=== PATIENT | male | born 1965 | race Hispanic/Latino ===

== ENCOUNTER 2021-08-23 05:40 | Inpatient (IN) | payer SELFPAY ==
[2021-08-23] MEDS ORDERED: Nitroglycerin 2% Ointment 1 INCH/1 GM Packet ONE (06:09)
[2021-08-23] MEDS ORDERED: Aspirin 325 MG TAB ONE (06:09)
[2021-08-23 06:16] LABS: #Eosinphils 0.1 thou/uL (0.0-0.7); #Lymphocytes 1.4 thou/uL (1.20-3.40); #Monocytes 0.4 thou/uL (0.11-0.59); #Neutrophils 7.3 thou/uL (1.40-6.50); %Basophils 0.4 % (0.0-1.0); %Eosinophils 0.7 % (0.0-10.0); %Lymphocytes 14.9 % (21.0-51.0); %Monocytes 4.1 % (0.0-10.0); %Neutrophils 79.9 % (42.0-75.0); Hemoglobin 19.4 g/dL (14.0-18.0); Mean Corpuscular HGB CONC 34.2 g/dL (32.0-36.0); Mean Corpuscular Hemoglobin 31.5 pg (27.0-31.0); Mean Corpuscular Volume 92.3 fL (78.0-98.0); Mean Platelet Volume 7.8 fL (7.4-10.4); Platelet Count 170 thou/uL (130-400); RBC Distribution Width 12.6 % (11.5-14.5); Red Blood Cell (RBC) Count 6.15 mill/uL (4.70-6.10); White Blood Cell (WBC) Count 9.1 thou/uL (4.8-10.8)
[2021-08-23] MEDS ORDERED: Enoxaparin Sodium 100 MG/ML SYRINGE ONE (07:13)
[2021-08-23 07:23] LABS: Albumin 4.2 g/dL (3.5-5.0)
[2021-08-23 07:25] LABS: Chloride 101 mmol/L (98-107); Sodium 137 mmol/L (136-145)
[2021-08-23 07:26] LABS: Calcium 8.6 mg/dL (7.8-10.44); Globulin 3.3 g/dL (2.4-3.5); Glucose 221 mg/dL (70-105); Protein, Total 7.5 g/dL (6.0-8.3)
[2021-08-23 07:28] LABS: Anion Gap 14 mmol/L (10-20); Bilirubin, Total 0.6 mg/dL (0.2-1.2); Carbon Dioxide 26 mmol/L (22-29)
[2021-08-23 07:29] LABS: Alkaline Phosphatase 102 U/L (40-110)
[2021-08-23 07:30] LABS: BUN (Urea Nitrogen) 9 mg/dL (8.4-25.7); Calc. Creatinine Clearance 0 mL/min (70-130)
[2021-08-23 07:31] LABS: AST (SGOT) 54 U/L (5-34)
[2021-08-23 07:32] LABS: ALT (SGPT) 47 U/L (8-55)
[2021-08-23] MEDS ORDERED: Nitroglycerin 0.4 MG TAB (25 Tab Bottle) SL PRN (07:39)
[2021-08-23 08:06] LABS: Hemoglobin A1c 7.7 % (4.0-6.0)
[2021-08-23] MEDS ORDERED: Enoxaparin Sodium 80 MG/0.8 ML SYRINGE SC SCH (09:00)
[2021-08-23 09:50] VITALS: BMI 31.6
[2021-08-23 10:06] LABS: Troponin I 6.235 ng/mL (< 0.028)
[2021-08-23] MEDS: Metoprolol Tartrate 25 MG TAB PO SCH ×2 (11:13→21:55)
[2021-08-23] MEDS: Folic Acid 1 MG TAB PO SCH (11:13)
[2021-08-23] MEDS: Thiamine 100 MG TAB PO SCH (11:13)
[2021-08-23] MEDS: Multivit, Therapeutic 1 TAB PO SCH (11:13)
[2021-08-23] MEDS ORDERED: Communication Order-Pharmacy FS SCH (11:45)
[2021-08-23] MEDS: Lactated Ringer's 1,000 ML IV SCH (12:41)
[2021-08-23 13:31] LABS: Troponin I 17.824 ng/mL (< 0.028)
[2021-08-23] MEDS: Nitroglycerin 2% Ointment 1 INCH/1 GM Packet TOP SCH ×2 (15:33→21:54)
[2021-08-23 20:39] LABS: SARS-CoV-2 PCR by NAA Not Detected (NotDetected)
[2021-08-23] MEDS ORDERED: Enoxaparin Sodium 100 MG/ML SYRINGE SC SCH (21:00)
[2021-08-23] MEDS ORDERED: Atorvastatin Calcium 20 MG TAB PO SCH (21:00)
[2021-08-23] MEDS: Atorvastatin Calcium 20 MG TAB PO SCH (21:55)
[2021-08-24] MEDS: Lactated Ringer's 1,000 ML IV SCH (02:09)
[2021-08-24] MEDS: Folic Acid 1 MG TAB PO SCH (04:39)
[2021-08-24] MEDS: Metoprolol Tartrate 25 MG TAB PO SCH ×2 (04:39→21:50)
[2021-08-24] MEDS: Multivit, Therapeutic 1 TAB PO SCH (04:40)
[2021-08-24] MEDS: Thiamine 100 MG TAB PO SCH (04:40)
[2021-08-24] MEDS ORDERED: Lidocaine 1% (PF) 30 ML VIAL ONE (07:14)
[2021-08-24] MEDS ORDERED: Fentanyl 100 MCG/2 ML VIAL ONE (07:45)
[2021-08-24] MEDS ORDERED: Midazolam HCl 2 mg/2 ml Vial ONE (07:45)
[2021-08-24] MEDS ORDERED: Acetaminophen/Codeine 30-300mg Tablet PO PRN ×2 (08:32)
[2021-08-24] MEDS ORDERED: Nitroglycerin 0.4 MG TAB (25 Tab Bottle) SL PRN (08:32)
[2021-08-24] MEDS ORDERED: Sodium Chloride 0.9% 200 ML IV PRN (08:32)
[2021-08-24] MEDS ORDERED: Aspirin Chewable 81 MG TAB PO SCH (09:00)
[2021-08-24 09:58] LABS: #Basophils 0.1 thou/uL (0.0-0.2); #Eosinphils 0.1 thou/uL (0.0-0.7); #Lymphocytes 1.1 thou/uL (1.20-3.40); #Monocytes 0.6 thou/uL (0.11-0.59); #Neutrophils 5.7 thou/uL (1.40-6.50); %Basophils 0.8 % (0.0-1.0); %Eosinophils 1.5 % (0.0-10.0); %Lymphocytes 14.2 % (21.0-51.0); %Monocytes 7.6 % (0.0-10.0); Hemoglobin 17.2 g/dL (14.0-18.0); Mean Corpuscular HGB CONC 34.5 g/dL (32.0-36.0); Mean Corpuscular Hemoglobin 31.8 pg (27.0-31.0); Mean Corpuscular Volume 92.2 fL (78.0-98.0); Mean Platelet Volume 8.6 fL (7.4-10.4); Platelet Count 167 thou/uL (130-400); RBC Distribution Width 12.7 % (11.5-14.5); Red Blood Cell (RBC) Count 5.43 mill/uL (4.70-6.10); White Blood Cell (WBC) Count 7.4 thou/uL (4.8-10.8)
[2021-08-24 10:15] LABS: Anion Gap 12 mmol/L (10-20); BUN (Urea Nitrogen) 8 mg/dL (8.4-25.7); Calc. Creatinine Clearance 117 mL/min (70-130); Calcium 8.6 mg/dL (7.8-10.44); Carbon Dioxide 27 mmol/L (22-29); Cardiac Risk 6.9 (Less than 4.5); Chloride 102 mmol/L (98-107); Cholesterol 243 mg/dl (< 200 Desired); Glucose 160 mg/dL (70-105); HDL Cholesterol 35 mg/dL (>60 Neg Risk); LDL Cholesterol, Calculated 168 mg/dL; Sodium 137 mmol/L (136-145); Triglycerides 202 mg/dL (Less than 150)
[2021-08-24] MEDS: Nitroglycerin 2% Ointment 1 INCH/1 GM Packet TOP SCH ×3 (10:35→21:50)
[2021-08-24] MEDS ORDERED: Iopamidol 370 76% 100 ML VIAL ONE (10:47)
[2021-08-24] MEDS ORDERED: Communication Order-Pharmacy FS SCH (18:21)
[2021-08-24 18:58] LABS: Hemoglobin A1c 7.5 % (4.0-6.0)
[2021-08-24] MEDS: Atorvastatin Calcium 20 MG TAB PO SCH (21:49)
[2021-08-25] MEDS: Metoprolol Tartrate 25 MG TAB PO SCH (05:50)
[2021-08-25] MEDS ORDERED: ALPRAZolam 0.25 MG TAB PO SCH (06:00)
[2021-08-25 09:22] LABS: Anion Gap 9 mmol/L (10-20); BUN (Urea Nitrogen) 9 mg/dL (8.4-25.7); Calc. Creatinine Clearance 114 mL/min (70-130); Calcium 8.8 mg/dL (7.8-10.44); Carbon Dioxide 30 mmol/L (22-29); Chloride 102 mmol/L (98-107); Glucose 135 mg/dL (70-105); Potassium 3.8 mmol/L (3.5-5.1); Sodium 137 mmol/L (136-145)
[2021-08-25] MEDS ORDERED: ceFAZolin 2 GM/Dextrose 50 ML 2 GM in Premix Bag 1 BAG IVPB SCH (11:00)
[2021-08-25] MEDS ORDERED: Lidocaine 1% MPF 2 ML VIAL ONE (11:48)
[2021-08-25] MEDS ORDERED: EPINEPHrine 1 MG/ML AMP ONE (12:03)
[2021-08-25] MEDS ORDERED: Albumin 5% 500 ML ONE (12:03)
[2021-08-25] MEDS ORDERED: Bupivacaine 0.25% 10 ML VIAL ONE (12:03)
[2021-08-25] MEDS ORDERED: Dexamethasone 4 mg/ml Vial ONE (12:03)
[2021-08-25] MEDS ORDERED: Fentanyl 100 MCG/2 ML VIAL ONE (12:22)
[2021-08-25] MEDS ORDERED: Dexmedetomidine 200 MCG/2 ML VIAL ONE (12:23)
[2021-08-25] MEDS ORDERED: Midazolam HCl 5 mg/5 ml Vial ONE (12:23)
[2021-08-25] MEDS ORDERED: Heparin 10,000 UNITS/1 ML VIAL 30,000 UNITS in Sodium Chloride 0.9% 1,000 ML FS SCH (12:30)
[2021-08-25] MEDS ORDERED: ceFAZolin 2 GM/DEX 5% 100 ML BAG ONE (12:36)
[2021-08-25] MEDS ORDERED: PROPOFOL 200 MG/20 ML VIAL ONE (12:44)
[2021-08-25] MEDS ORDERED: Sodium Bicarb 50 MEQ/50 ML Abboject 8.4% SYRINGE ONE (12:44)
[2021-08-25] MEDS ORDERED: Mannitol 12.5 GM/50 ML ONE (12:44)
[2021-08-25] MEDS ORDERED: Magnesium Sulfate 1 GM/2 ML VIAL ONE (12:44)
[2021-08-25] MEDS ORDERED: Cardioplegic Soln 1,000 ML BAG ONE (12:44)
[2021-08-25] MEDS ORDERED: Thrombin 5000 UNITS/5 ML VIAL ONE (12:44)
[2021-08-25] MEDS ORDERED: Potassium Chloride 60 MEQ/30 ML VIAL ONE (12:44)
[2021-08-25] MEDS ORDERED: Papaverine 60 MG/2 ML VIAL ONE (12:44)
[2021-08-25] MEDS ORDERED: Protamine Sulfate 250 MG/25 ML VIAL ONE (12:44)
[2021-08-25] MEDS ORDERED: Aminocaproic Acid 5 GM/20 ML VIAL ONE (12:44)
[2021-08-25] MEDS ORDERED: Dexamethasone 20 MG/5 ML VIAL ONE (12:44)
[2021-08-25] MEDS ORDERED: Calcium Chloride 1 GM/10 ML Abboject SYRINGE ONE (12:44)
[2021-08-25] MEDS ORDERED: Heparin 30,000 units/30 ml VIAL ONE (12:44)
[2021-08-25] MEDS ORDERED: Norepinephrine 4 MG/4 ML VIAL ONE (12:44)
[2021-08-25] MEDS ORDERED: Heparin 5,000 UNITS/ML VIAL ONE (12:44)
[2021-08-25] MEDS ORDERED: Lidocaine 1% PF 5 ML VIAL ONE (12:44)
[2021-08-25] MEDS ORDERED: Vecuronium 10 MG VIAL ONE (12:44)
[2021-08-25] MEDS ORDERED: Lidocaine 2% PF 100 mg/5 ml Syringe ONE (12:44)
[2021-08-25] MEDS ORDERED: Glycopyrrolate 0.2 MG/ML 5 ML SYRINGE ONE (12:44)
[2021-08-25] MEDS ORDERED: Insulin Regular 300 UNITS/3 ML VIAL ONE (14:24)
[2021-08-25 16:15] LABS: Actual Bicarbonate (HCO3a) 20.9 mEq/L (22-28); Base Excess (BEa) -2.7 mEq/L (-2.0 to +3.0); CO2 Tension 33.3 mmHg (35.0-45.0); Calcium, Ionized (arterial) 1.09 mmol/L (1.12-1.30); Carboxyhemoglobin (COHb) 0.9 gm% (0.0-3.0); Hemoglobin (Hb) 16.1 g/dL (14.0-18.0); Potassium - ABG Lab 3.93 mmol/L (3.70-5.30); Puncture Site ALINE; pH, Arterial 7.42 (7.35-7.45)
[2021-08-25 16:21] LABS: ALV-art Gradient 188.575 mmHg (0-20)
[2021-08-25] MEDS ORDERED: Nitroglycerin 50 MG/250 ML BOT 250 ML IVPB PRN (16:38)
[2021-08-25] MEDS ORDERED: traMADol HCl 50 MG TAB PO PRN (16:38)
[2021-08-25] MEDS ORDERED: Phenylephrine 40 MG, Admixture Fee 1 EACH in Sodium Chloride 0.9% 250 ML 250 ML IVPB SCH (16:38)
[2021-08-25] MEDS ORDERED: Acetaminophen 325 MG TAB PO PRN (16:38)
[2021-08-25] MEDS ORDERED: Potassium Chloride 20 MEQ/100 ML PREMIX BAG IVPB PRN (16:38)
[2021-08-25] MEDS ORDERED: Bisacodyl 5 MG TAB PO PRN (16:38)
[2021-08-25] MEDS ORDERED: Post-Op Insulin Drip Protocol IVPB ONE (16:38)
[2021-08-25] MEDS ORDERED: D5 1/2 NS w/20 mEq KCL 1,000 ML IV SCH (16:38)
[2021-08-25] MEDS ORDERED: hydrALAZINE 20 MG/ML VIAL SLOW IVP PRN (16:38)
[2021-08-25] MEDS ORDERED: Ondansetron PF 4 MG/2 ML Vial IVP PRN (16:38)
[2021-08-25] MEDS ORDERED: Morphine 2 MG/ML VIAL SLOW IVP PRN (16:38)
[2021-08-25] MEDS ORDERED: Guaifenesin DM 100-10/5 ML UDCUP PO PRN (16:38)
[2021-08-25] MEDS ORDERED: Hetastarch 6% 500 ML 500 ML IVPB PRN (16:38)
[2021-08-25] MEDS ORDERED: Mag-Al 1200 mg/1200 mg/30 ML UDCUP PO PRN (16:38)
[2021-08-25] MEDS ORDERED: niCARdipine 25 MG in Sodium Chloride 0.9% 250 ML 250 ML IVPB PRN (16:38)
[2021-08-25] MEDS ORDERED: Fentanyl 100 MCG/2 ML VIAL SLOW IVP PRN (16:38)
[2021-08-25] MEDS ORDERED: Bisacodyl 10 MG SUPP PR PRN (16:38)
[2021-08-25] MEDS ORDERED: Dextrose 5% in Water 1,000 ML IV PRN (17:00)
[2021-08-25] MEDS ORDERED: Dextrose 50% Abboject 50 ML SYRINGE SLOW IVP PRN (17:00)
[2021-08-25] MEDS ORDERED: HUMULIN R 100 UNITS in Sodium Chloride 0.9% 100 ML IVPB SCH (17:00)
[2021-08-25] MEDS ORDERED: Insulin Regular 300 UNITS/3 ML VIAL SC PRN (17:00)
[2021-08-25] MEDS ORDERED: Lantus 1000 UNITS/10 ML VIAL SC PRN (17:00)
[2021-08-25 17:08] LABS: Anion Gap 14 mmol/L (10-20); BUN (Urea Nitrogen) 10 mg/dL (8.4-25.7); Calc. Creatinine Clearance 122 mL/min (70-130); Calcium 7.7 mg/dL (7.8-10.44); Carbon Dioxide 20 mmol/L (22-29); Chloride 109 mmol/L (98-107); Glucose 207 mg/dL (70-105); Potassium 4.3 mmol/L (3.5-5.1); Sodium 139 mmol/L (136-145)
[2021-08-25 17:12] LABS: #Basophils 0.1 thou/uL (0.0-0.2); #Eosinphils 0.1 thou/uL (0.0-0.7); #Lymphocytes 0.8 thou/uL (1.20-3.40); #Monocytes 0.6 thou/uL (0.11-0.59); #Neutrophils 14.6 thou/uL (1.40-6.50); %Basophils 0.5 % (0.0-1.0); %Eosinophils 0.3 % (0.0-10.0); %Lymphocytes 4.9 % (21.0-51.0); %Monocytes 3.5 % (0.0-10.0); %Neutrophils 90.8 % (42.0-75.0); Hemoglobin 16.7 g/dL (14.0-18.0); Mean Corpuscular HGB CONC 33.7 g/dL (32.0-36.0); Mean Corpuscular Hemoglobin 31.4 pg (27.0-31.0); Mean Corpuscular Volume 93.3 fL (78.0-98.0); RBC Distribution Width 12.5 % (11.5-14.5); Red Blood Cell (RBC) Count 5.32 mill/uL (4.70-6.10); White Blood Cell (WBC) Count 16.1 thou/uL (4.8-10.8)
[2021-08-25 17:18] LABS: INR-International Normal Ratio 1.2; Prothrombin Time 15.6 sec (12.0-14.7)
[2021-08-25 17:19] LABS: PTT 34.3 sec (22.9-36.1)
[2021-08-25 17:20] LABS: MDiff Complete? YES; Mean Platelet Volume 8.2 fL (7.4-10.4); Platelet Count 114 thou/uL (130-400); Platelet Morphology Comment Appears Decreased; Polychromasia SLIGHT = 2-3 cells (100X) (0-2/hpf)
[2021-08-25] MEDS: Ketorolac Tromethamine 30 MG/ML VIAL IVP SCH ×2 (17:25→23:31)
[2021-08-25] MEDS ORDERED: Magnesium 2 GM/50 ML(in water) 2 GM in Premix Bag 1 BAG IVPB SCH (17:30)
[2021-08-25 18:51] LABS: Actual Bicarbonate (HCO3a) 22.3 mEq/L (22-28); Base Excess (BEa) -2.2 mEq/L (-2.0 to +3.0); CO2 Tension 37.8 mmHg (35.0-45.0); Carboxyhemoglobin (COHb) 0.6 gm% (0.0-3.0); Hemoglobin (Hb) 17.2 g/dL (14.0-18.0); O2 Tension (PaO2), arterial 62.1 mmHg (80.0-100.0); Potassium - ABG Lab 3.95 mmol/L (3.70-5.30); pH, Arterial 7.39 (7.35-7.45)
[2021-08-25] MEDS: Fentanyl 100 MCG/2 ML VIAL SLOW IVP PRN (19:46)
[2021-08-25] MEDS ORDERED: Famotidine/PF 20 mg/2ml Vial SLOW IVP SCH (21:00)
[2021-08-25] MEDS: Atorvastatin Calcium 40 MG TAB PO SCH (21:08)
[2021-08-25] MEDS: CEFAZOLIN 2 GM, Admixture Fee 1 EACH in Sodium Chloride 0.9% 100 ML IVPB SCH (21:38)
[2021-08-26] MEDS ORDERED: Lorazepam 1 MG TAB PO PRN
[2021-08-26] MEDS: traMADol HCl 50 MG TAB PO PRN (01:09)
[2021-08-26] MEDS: Fentanyl 100 MCG/2 ML VIAL SLOW IVP PRN (03:40)
[2021-08-26 03:55] LABS: #Lymphocytes 0.5 thou/uL (1.20-3.40); #Monocytes 0.8 thou/uL (0.11-0.59); #Neutrophils 12.7 thou/uL (1.40-6.50); %Eosinophils 0.1 % (0.0-10.0); %Lymphocytes 3.3 % (21.0-51.0); %Monocytes 5.6 % (0.0-10.0); %Neutrophils 90.9 % (42.0-75.0); Mean Corpuscular HGB CONC 33.7 g/dL (32.0-36.0); Mean Corpuscular Hemoglobin 31.3 pg (27.0-31.0); Mean Platelet Volume 7.7 fL (7.4-10.4); Platelet Count 126 thou/uL (130-400); RBC Distribution Width 12.5 % (11.5-14.5); Red Blood Cell (RBC) Count 4.16 mill/uL (4.70-6.10)
[2021-08-26 03:58] LABS: Anion Gap 10 mmol/L (10-20); BUN (Urea Nitrogen) 13 mg/dL (8.4-25.7); Calc. Creatinine Clearance 131 mL/min (70-130); Calcium 7.5 mg/dL (7.8-10.44); Carbon Dioxide 23 mmol/L (22-29); Chloride 110 mmol/L (98-107); Glucose 131 mg/dL (70-105); Potassium 3.9 mmol/L (3.5-5.1); Sodium 139 mmol/L (136-145)
[2021-08-26] MEDS: CEFAZOLIN 2 GM, Admixture Fee 1 EACH in Sodium Chloride 0.9% 100 ML IVPB SCH ×2 (04:32→12:37)
[2021-08-26] MEDS: Ketorolac Tromethamine 30 MG/ML VIAL IVP SCH ×4 (06:14→23:57)
[2021-08-26] MEDS: Aspirin 325 MG TAB PO SCH (08:03)
[2021-08-26] MEDS: Magnesium 2 GM/50 ML(in water) 2 GM in Premix Bag 1 BAG IVPB SCH (08:03)
[2021-08-26] MEDS: Folic Acid 1 MG TAB PO SCH (08:04)
[2021-08-26] MEDS ORDERED: Thiamine 100 MG TAB PO SCH (09:00)
[2021-08-26] MEDS ORDERED: Ondansetron ODT 4 MG TAB PO PRN (10:00)
[2021-08-26] MEDS ORDERED: Electrolyte Replacement Protocol 1 EACH FS PRN (10:00)
[2021-08-26] MEDS ORDERED: Lorazepam 2 MG/ML VIAL IM PRN (10:00)
[2021-08-26] MEDS: Thiamine HCl 200 MG/2 ML VIAL SLOW IVP SCH (10:52)
[2021-08-26] MEDS: Lorazepam 1 MG TAB PO SCH ×3 (10:52→17:16)
[2021-08-26] MEDS: Insulin Regular 300 UNITS/3 ML VIAL SC PRN ×2 (12:03→16:54)
[2021-08-26 14:06] LABS: Actual Bicarbonate (HCO3a) 21.6 mEq/L (22-28); Analyzer IN Cardio OR; Base Excess (BEa) -3.6 mEq/L (-2.0 to +3.0); CO2 Tension 39.9 mmHg (35.0-45.0); Carboxyhemoglobin (COHb) 0.3 gm% (0.0-3.0); Hemoglobin (Hb) 16.9 g/dL (14.0-18.0); O2 Tension (PaO2), arterial 245.2 mmHg (80.0-100.0); Potassium - ABG Lab 3.98 mmol/L (3.70-5.30); pH, Arterial 7.35 (7.35-7.45)
[2021-08-26 14:06] LABS: Actual Bicarbonate (HCO3a) 23.6 mEq/L (22-28); Analyzer IN Cardio OR; CO2 Tension 43.2 mmHg (35.0-45.0); Calcium, Ionized (arterial) 1.13 mmol/L (1.12-1.30); Carboxyhemoglobin (COHb) 0.3 gm% (0.0-3.0); Hemoglobin (Hb) 17.1 g/dL (14.0-18.0); O2 Tension (PaO2), arterial 312.9 mmHg (80.0-100.0); Potassium - ABG Lab 3.84 mmol/L (3.70-5.30); pH, Arterial 7.36 (7.35-7.45)
[2021-08-26 14:07] LABS: Analyzer IN Cardio OR; CO2 Tension 42.2 mmHg (35.0-45.0); Calcium, Ionized (arterial) 0.95 mmol/L (1.12-1.30); Carboxyhemoglobin (COHb) 0.3 gm% (0.0-3.0); O2 Tension (PaO2), arterial 184.6 mmHg (80.0-100.0); Potassium - ABG Lab 4.38 mmol/L (3.70-5.30); pH, Arterial 7.39 (7.35-7.45)
[2021-08-26 14:07] LABS: Actual Bicarbonate (HCO3a) 25.3 mEq/L (22-28); Analyzer IN Cardio OR; CO2 Tension 43.7 mmHg (35.0-45.0); Carboxyhemoglobin (COHb) 0.2 gm% (0.0-3.0); Hemoglobin (Hb) 13.1 g/dL (14.0-18.0); O2 Tension (PaO2), arterial 301.4 mmHg (80.0-100.0); Potassium - ABG Lab 4.78 mmol/L (3.70-5.30); pH, Arterial 7.38 (7.35-7.45)
[2021-08-26 14:08] LABS: Actual Bicarbonate (HCO3a) 22.7 mEq/L (22-28); Analyzer IN Cardio OR; Base Excess (BEa) -1.8 mEq/L (-2.0 to +3.0); CO2 Tension 37.7 mmHg (35.0-45.0); Calcium, Ionized (arterial) 1.17 mmol/L (1.12-1.30); Carboxyhemoglobin (COHb) 0.7 gm% (0.0-3.0); Hemoglobin (Hb) 12.2 g/dL (14.0-18.0); Potassium - ABG Lab 4.15 mmol/L (3.70-5.30)
[2021-08-26 14:08] LABS: Puncture Site Arterial Line
[2021-08-26 14:08] LABS: Puncture Site Arterial Line
[2021-08-26 14:09] LABS: Puncture Site Arterial Line
[2021-08-26 14:09] LABS: Puncture Site Arterial Line
[2021-08-26 14:10] LABS: O2 Tension (PaO2), arterial 55.2 mmHg (80.0-100.0); Puncture Site Arterial Line
[2021-08-26] MEDS ORDERED: Potassium Chloride 20 MEQ TAB PO SCH (17:45)
[2021-08-26] MEDS ORDERED: Furosemide 40 MG/4 ML VIAL SLOW IVP SCH (17:45)
[2021-08-26] MEDS: Atorvastatin Calcium 40 MG TAB PO SCH (20:16)
[2021-08-27] MEDS: Ketorolac Tromethamine 30 MG/ML VIAL IVP SCH ×4 (05:31→23:43)
[2021-08-27] MEDS ORDERED: Lorazepam 1 MG TAB PO SCH (06:00)
[2021-08-27] MEDS: Potassium Chloride 10 MEQ TAB PO SCH ×2 (07:52→17:09)
[2021-08-27] MEDS: BEER 1 CAN PO SCH ×3 (08:18→17:07)
[2021-08-27] MEDS: Aspirin 325 MG TAB PO SCH (08:19)
[2021-08-27] MEDS: Multivit, Therapeutic 1 TAB PO SCH (08:19)
[2021-08-27] MEDS: Furosemide 40 MG TAB PO SCH ×2 (08:19→13:58)
[2021-08-27] MEDS: Folic Acid 1 MG TAB PO SCH (08:19)
[2021-08-27] MEDS: Magnesium 2 GM/50 ML(in water) 2 GM in Premix Bag 1 BAG IVPB SCH (08:19)
[2021-08-27] MEDS ORDERED: Folic Acid 1 MG TAB PO SCH (09:00)
[2021-08-27] MEDS ORDERED: Lorazepam 1 MG TAB PO PRN (10:00)
[2021-08-27] MEDS: Thiamine HCl 200 MG/2 ML VIAL SLOW IVP SCH (10:44)
[2021-08-27] MEDS: Insulin Regular 300 UNITS/3 ML VIAL SC PRN (10:53)
[2021-08-27] MEDS ORDERED: Mineral Oil ENEMA PR PRN (13:57)
[2021-08-27] MEDS ORDERED: diphenhydrAMINE 25 MG CAP PO PRN (13:57)
[2021-08-27] MEDS ORDERED: Milk Of Magnesia 30 ML UDCUP PO PRN (13:57)
[2021-08-27] MEDS ORDERED: Bisacodyl 5 MG TAB PO PRN (13:57)
[2021-08-27] MEDS ORDERED: Zolpidem Tartrate 5 MG TAB PO PRN (13:57)
[2021-08-27] MEDS ORDERED: Bisacodyl 10 MG SUPP PR PRN (13:57)
[2021-08-27] MEDS ORDERED: Nitroglycerin 0.4 MG TAB (25 Tab Bottle) SL PRN (13:57)
[2021-08-27] MEDS ORDERED: Guaifenesin DM 100-10/5 ML UDCUP PO PRN (13:57)
[2021-08-27] MEDS ORDERED: Mag-Al 1200 mg/1200 mg/30 ML UDCUP PO PRN (13:57)
[2021-08-27] MEDS ORDERED: Dextrose 5% in Water 1,000 ML IV PRN (14:15)
[2021-08-27] MEDS ORDERED: Insulin Regular 300 UNITS/3 ML VIAL SC PRN (14:15)
[2021-08-27] MEDS ORDERED: Dextrose 50% Abboject 50 ML SYRINGE SLOW IVP PRN (14:15)
[2021-08-27] MEDS: Atorvastatin Calcium 40 MG TAB PO SCH (20:57)
[2021-08-27] MEDS ORDERED: Metoprolol Tartrate 25 MG TAB PO SCH ×2 (21:00)
[2021-08-28] MEDS: Ketorolac Tromethamine 30 MG/ML VIAL IVP SCH ×3 (05:08→17:16)
[2021-08-28] MEDS: Lorazepam 0.5 MG TAB PO SCH ×3 (05:08→17:17)
[2021-08-28] MEDS: BEER 1 CAN PO SCH ×3 (09:03→14:20)
[2021-08-28] MEDS: Aspirin 325 mg Enteric Coated Tablet PO SCH (09:04)
[2021-08-28] MEDS: Furosemide 40 MG TAB PO SCH ×2 (09:05→14:14)
[2021-08-28] MEDS: Lisinopril 2.5 MG TAB PO SCH (09:05)
[2021-08-28] MEDS: Potassium Chloride 10 MEQ TAB PO SCH ×2 (09:05→17:16)
[2021-08-28] MEDS: Multivit, Therapeutic 1 TAB PO SCH (09:05)
[2021-08-28] MEDS: Metoprolol Tartrate 25 MG TAB PO SCH ×2 (09:05→20:49)
[2021-08-28] MEDS: Folic Acid 1 MG TAB PO SCH (09:06)
[2021-08-28] MEDS ORDERED: Lorazepam 1 MG TAB PO PRN (10:00)
[2021-08-28] MEDS: Thiamine HCl 200 MG/2 ML VIAL SLOW IVP SCH (11:34)
[2021-08-28] MEDS: Insulin Regular 300 UNITS/3 ML VIAL SC PRN (12:43)
[2021-08-28] MEDS: Atorvastatin Calcium 40 MG TAB PO SCH (20:49)
[2021-08-29] MEDS: Lorazepam 0.5 MG TAB PO SCH (00:27)
[2021-08-29] MEDS: traMADol HCl 50 MG TAB PO PRN (00:29)
[2021-08-29] MEDS ORDERED: Lorazepam 0.5 MG TAB PO PRN (06:00)
[2021-08-29] MEDS ORDERED: Thiamine 100 MG TAB PO SCH (09:00)
[2021-08-29] MEDS: Metoprolol Tartrate 25 MG TAB PO SCH (09:55)
[2021-08-29] MEDS: Folic Acid 1 MG TAB PO SCH (09:55)
[2021-08-29] MEDS: Lisinopril 2.5 MG TAB PO SCH (09:56)
[2021-08-29] MEDS: Aspirin 325 mg Enteric Coated Tablet PO SCH (09:56)
[2021-08-29] MEDS: Potassium Chloride 10 MEQ TAB PO SCH (09:56)
[2021-08-29] MEDS: Furosemide 40 MG TAB PO SCH (09:56)
[2021-08-29] MEDS: BEER 1 CAN PO SCH (09:56)
[2021-08-29 12:18] VITALS: TEMP 98.2
[2021-08-29 12:33] VITALS: BP 133/71
== END 2021-08-29 11:55 | disposition home or self-care (01) | DRG 234 ==
LOC: ERS 05:40 → 2NO 07:19 → CCU 08-25 11:36 → 2NO 08-28 01:31
PROVIDERS: ADMIT Internal Medicine; ATTEND Internal Medicine
PROC: 4A023N7 Measurement of Cardiac Sampling and Pressure, Left Heart, Percutaneous Approach (ICD-10-PCS; principal; 2021-08-24)
PROC: B2111ZZ Fluoroscopy of Multiple Coronary Arteries using Low Osmolar Contrast (ICD-10-PCS; 2021-08-24)
PROC: B2151ZZ Fluoroscopy of Left Heart using Low Osmolar Contrast (ICD-10-PCS; 2021-08-24)
PROC: 02100Z9 Bypass Coronary Artery, One Artery from Left Internal Mammary, Open Approach (ICD-10-PCS; 2021-08-25)
PROC: 021109W Bypass Coronary Artery, Two Arteries from Aorta with Autologous Venous Tissue, Open Approach (ICD-10-PCS; 2021-08-25)
PROC: 06BQ4ZZ Excision of Left Saphenous Vein, Percutaneous Endoscopic Approach (ICD-10-PCS; 2021-08-25)
PROC: 02L70CK Occlusion of Left Atrial Appendage with Extraluminal Device, Open Approach (ICD-10-PCS; 2021-08-25)
PROC: 5A1221Z Performance of Cardiac Output, Continuous (ICD-10-PCS; 2021-08-25)
DX: I21.4 Non-ST elevation (NSTEMI) myocardial infarction (principal); Z20.822 Contact with and (suspected) exposure to COVID-19; F17.210 Nicotine dependence, cigarettes, uncomplicated; I10 Essential (primary) hypertension; E11.65 Type 2 diabetes mellitus with hyperglycemia; F10.10 Alcohol abuse, uncomplicated; I25.10 Atherosclerotic heart disease of native coronary artery without angina pectoris; E78.5 Hyperlipidemia, unspecified; Z71.6 Tobacco abuse counseling; Z71.41 Alcohol abuse counseling and surveillance of alcoholic
CPT/HCPCS: 36415; 36416; 36430; 71045; 76942; 80048; 80053; 80061; 82553; 82805; 83036; 84443; 84484; 85025; 85610; 85730; 86850; 86900; 86901; 93005; 93010; 93306; 93458; 93798; 94002; 96372; 99152; C1751; J0171; J0690; J1100; J1642; J1644; J1650; J1815; J1885; J1940; J2001; J2150; J2250; J2405; J2440; J2704; J2720; J3010; J3370; J3411; J3475; J3480; J3490; J7120; J7620; P9045; Q9967; S0017; S0020; S0028; U0003; U0005